=== PATIENT | female | born 1985 | race American Indian/Alaskan Native ===

== ENCOUNTER 2020-04-30 11:10 | Emergency (ER) | payer SELFPAY ==
--- NOTE | 2020-04-30 12:58 | Event Note ---
ED Screening Note Date of service: 04/30/20 Time: 12:57 ED Screening Note: Patient presents for vaginal bleeding and lower abdominal pain during States pain 9/10 in severity Patient has not seen an MECHANICAL REPAIR WORKER and is unsure of how many weeks she is currently Patient was seen here last week for nausea and vomiting and states that is when she was diagnosed with , no ultrasound was performed This initial assessment/diagnostic orders/clinical plan/treatment(s) is/are subject to change based on patients health status, clinical progression and re- assessment by fellow clinical providers in the ED. Further treatment and workup at subsequent clinical providers discretion. Patient/guardian urged not to elope from the ED as their condition may be serious if not clinically assessed and managed. Initial orders include: Ultrasound Labs
[2020-04-30 13:09] VITALS: BP 118/56
[2020-04-30 13:47] LABS: Basophils # (Auto) 0.2 K/mm3 (0.0-0.1); Basophils % (Auto) 1.2 % (0.0-1.8); Eosinophils # (Auto) 0.2 K/mm3 (0.0-0.4); Eosinophils % (Auto) 1.2 % (0.0-4.3); Hematocrit 42.3 % (30.3-42.9); Hemoglobin 13.8 gm/dl (10.1-14.3); Lymphocytes # (Auto) 4.4 K/mm3 (1.2-5.4); Lymphocytes % (Auto) 25.9 % (13.4-35.0); Mean Corpuscular HGB Conc 33 % (30-34); Mean Corpuscular Volume 94 fl (79-97); Monocytes # (Auto) 1.3 K/mm3 (0.0-0.8); Monocytes % (Auto) 7.8 % (0.0-7.3); Platelet Count 220 K/mm3 (140-440); Red Cell Distribution Width 14.1 % (13.2-15.2)
[2020-04-30 14:15] LABS: Alanine Aminotransferase 10 units/L (7-56); Blood Urea Nitrogen 14 mg/dL (7-17); Calcium 9.4 mg/dL (8.4-10.2); Hemolysis Index 85
[2020-04-30 14:17] LABS: BUN/Creatinine Ratio 20
[2020-04-30 14:17] LABS: Bacteria,Urine 1+ /HPF (Negative); Bilirubin,Urine NEG (Negative); Blood,Urine NEG (Negative); Color,Urine Yellow (Yellow); Mucus,Urine FEW /HPF; Protein,Urine <15 mg/dL mg/dL (Negative); Urobilinogen,Urine < 2.0 mg/dL (<2.0); WBC,Urine < 1.0 /HPF (0.0-6.0)
--- NOTE | 2020-04-30 14:19 | Ultrasound Report ---
ULTRASOUND OBSTETRIC INDICATION: 9 weeks, 5 days with pelvic pain and vaginal bleeding. TECHNIQUE: Transabdominal and Transvaginal. COMPARISON: None available. FINDINGS: GESTATIONAL SAC: Well-defined oval shape and intrauterine in location. YOLK SAC: No significant abnormality. EMBRYO/FETUS: No significant abnormality. - [place]-Rump Length = 0.8 cm = 6 weeks, 6 day(s). - Heart Rate = 143 beats per minute. ADNEXA: No significant abnormality. FREE FLUID: None. ADDITIONAL FINDINGS: A small area of possible subchorionic hemorrhage measures 1.2 x 0.1 cm. IMPRESSION: 1. Single, living intrauterine with estimated sonographic age of 6 weeks, 6 day(s). 2. Possible small subchorionic hemorrhage as above. Signer Name: Dong Back MD Signed: 04/30/2020 2:15 PM Workstation Name: [id number]
--- NOTE | 2020-04-30 14:19 | Ultrasound Report ---
ULTRASOUND OBSTETRIC INDICATION: 9 weeks, 5 days with pelvic pain and vaginal bleeding. TECHNIQUE: Transabdominal and Transvaginal. COMPARISON: None available. FINDINGS: GESTATIONAL SAC: Well-defined oval shape and intrauterine in location. YOLK SAC: No significant abnormality. EMBRYO/FETUS: No significant abnormality. - [place]-Rump Length = 0.8 cm = 6 weeks, 6 day(s). - Heart Rate = 143 beats per minute. ADNEXA: No significant abnormality. FREE FLUID: None. ADDITIONAL FINDINGS: A small area of possible subchorionic hemorrhage measures 1.2 x 0.1 cm. IMPRESSION: 1. Single, living intrauterine with estimated sonographic age of 6 weeks, 6 day(s). 2. Possible small subchorionic hemorrhage as above. Signer Name: Dong Back MD Signed: 04/30/2020 2:15 PM Workstation Name: [id number]
--- NOTE | 2020-04-30 16:28 | Emergency Department Report ---
ED Female HPI - General Chief complaint: Abdominal Pain Stated complaint: PREG BLEEDING Time Seen by Provider: 04/30/20 12:57 Source: patient Mode of arrival: Ambulatory Limitations: No Limitations - History of Present Illness Initial comments: This is a G1, P0 34-year-old female who presents the ED complaining of intermittent vaginal spotting that began 3 days ago. Patient states she was worried because spotting is not resolved. Patient states last menstrual. As February 22, 2020. Patient states that she has not had care as of yet due to her waiting on her Medicaid to come through. Patient denies pelvic pain, nausea, vomiting, shortness of breath or chest pain Complaint: vaginal bleeding Are you Now?: Yes Last Menstrual Period: 02/22/20 EDC: 11/28/20 - Related Data Allergies Allergy/AdvReac Type Severity Reaction Status Date / Time No Known Allergies Allergy Unverified 04/22/20 12:51 ED Review of Systems ROS: Stated complaint: PREG BLEEDING Other details as noted in HPI ED Past Medical Hx - Past Medical History Previous Medical History?: No - Surgical History Additional Surgical History: Breast reduction - Social History Smoking Status: Never Smoker Substance Use Type: None ED Physical Exam - General Limitations: No Limitations ED Course Vital Signs 04/30/20 04/30/20 11:49 13:02 Temperature 98.1 F Pulse Rate 58 L Respiratory 18 Rate Blood Pressure 101/50 Blood Pressure 118/56 [Left] O2 Sat by Pulse 98 Oximetry ED Medical Decision Making - Lab Data Result diagrams: 04/30/20 13:10 04/30/20 13:10 Laboratory Last Values WBC 17.1 K/mm3 (4.5-11.0) H 04/30/20 13:10 RBC 4.50 M/mm3 (3.65-5.03) 04/30/20 13:10 Hgb 13.8 gm/dl (10.1-14.3) 04/30/20 13:10 Hct 42.3 % (30.3-42.9) 04/30/20 13:10 MCV 94 fl (79-97) 04/30/20 13:10 MCH 31 pg (28-32) 04/30/20 13:10 MCHC 33 % (30-34) 04/30/20 13:10 RDW 14.1 % (13.2-15.2) 04/30/20 13:10 Plt Count 220 K/mm3 (140-440) 04/30/20 13:10 Lymph % (Auto) 25.9 % (13.4-35.0) 04/30/20 13:10 Martin % (Auto) 7.8 % (0.0-7.3) H 04/30/20 13:10 Eos % (Auto) 1.2 % (0.0-4.3) 04/30/20 13:10 Baso % (Auto) 1.2 % (0.0-1.8) 04/30/20 13:10 Lymph # 4.4 K/mm3 (1.2-5.4) 04/30/20 13:10 Martin # 1.3 K/mm3 (0.0-0.8) H 04/30/20 13:10 Eos # 0.2 K/mm3 (0.0-0.4) 04/30/20 13:10 Baso # 0.2 K/mm3 (0.0-0.1) H 04/30/20 13:10 Seg Neutrophils % 63.9 % (40.0-70.0) 04/30/20 13:10 Seg Neutrophils # 11.0 K/mm3 (1.8-7.7) H 04/30/20 13:10 Sodium 136 mmol/L (137-145) L 04/30/20 13:10 Potassium 4.4 mmol/L (3.6-5.0) 04/30/20 13:10 Chloride 101.4 mmol/L (98-107) 04/30/20 13:10 Carbon Dioxide 21 mmol/L (22-30) L 04/30/20 13:10 Anion Gap 18 mmol/L 04/30/20 13:10 BUN 14 mg/dL (7-17) 04/30/20 13:10 Creatinine 0.7 mg/dL (0.6-1.2) 04/30/20 13:10 Estimated GFR > 60 ml/min 04/30/20 13:10 BUN/Creatinine Ratio 20 % 04/30/20 13:10 Glucose 77 mg/dL (65-100) 04/30/20 13:10 Calcium 9.4 mg/dL (8.4-10.2) 04/30/20 13:10 Total Bilirubin 0.30 mg/dL (0.1-1.2) 04/30/20 13:10 AST 15 units/L (5-40) 04/30/20 13:10 ALT 10 units/L (7-56) 04/30/20 13:10 Alkaline Phosphatase 52 units/L (35-129) 04/30/20 13:10 Total Protein 7.7 g/dL (6.3-8.2) 04/30/20 13:10 Albumin 4.0 g/dL (3.9-5) 04/30/20 13:10 Albumin/Globulin Ratio 1.1 % 04/30/20 13:10 HCG, Quant 93477 mIU/mL (0-4) H 04/30/20 13:10 Urine Color Yellow (Yellow) 04/30/20 13:30 Urine Turbidity Clear (Clear) 04/30/20 13:30 Urine pH 6.0 (5.0-7.0) 04/30/20 13:30 Ur Specific [place] 1.024 (1.003-1.030) 04/30/20 13:30 Urine Protein <15 mg/dl mg/dL (Negative) 04/30/20 13:30 Urine Glucose (UA) Neg mg/dL (Negative) 04/30/20 13:30 Urine Ketones Neg mg/dL (Negative) 04/30/20 13:30 Urine Blood Neg (Negative) 04/30/20 13:30 Urine Nitrite Neg (Negative) 04/30/20 13:30 Urine Bilirubin Neg (Negative) 04/30/20 13:30 Urine Urobilinogen < 2.0 mg/dL (<2.0) 04/30/20 13:30 Ur Leukocyte Esterase Neg (Negative) 04/30/20 13:30 Urine WBC (Auto) < 1.0 /HPF (0.0-6.0) 04/30/20 13:30 Urine RBC (Auto) 2.0 /HPF (0.0-6.0) 04/30/20 13:30 U Epithel Cells (Auto) 2.0 /HPF (0-13.0) 04/30/20 13:30 Urine Bacteria (Auto) 1+ /HPF (Negative) 04/30/20 13:30 Urine Mucus Few /HPF 04/30/20 13:30 Blood Type O POSITIVE 04/30/20 13:10 - Radiology Data Radiology results: report reviewed ULTRASOUND OBSTETRIC INDICATION: 9 weeks, 5 days with pelvic pain and vaginal bleeding. TECHNIQUE: Transabdominal and Transvaginal. COMPARISON: None available. FINDINGS: GESTATIONAL SAC: Well-defined oval shape and intrauterine in location. YOLK SAC: No significant abnormality. EMBRYO/FETUS: No significant abnormality. - [place]-Rump Length = 0.8 cm = 6 weeks, 6 day(s). - Heart Rate = 143 beats per minute. ADNEXA: No significant abnormality. FREE FLUID: None. ADDITIONAL FINDINGS: A small area of possible subchorionic hemorrhage measures 1.2 x 0.1 cm. IMPRESSION: 1. Single, living intrauterine with estimated sonographic age of 6 weeks, 6 day(s). 2. Possible small subchorionic hemorrhage as above. Signer Name: Dong Back MD Signed: 04/30/2020 2:15 PM Workstation Name: [id number] Transcribed By: MN Dictated By: Dong Back MD Electronically Authenticated By: Dong Back MD Signed Date/Time: 04/30/20 1415 - Medical Decision Making 34-year-old female presents to ED with vaginal spotting in ED course: Pt received ultra sound, CBC, urinalysis, test and quantitative ED All labs within normal limits, quantitative elevated matching gestation age Patient states that bleeding is just intermittent spotting Patient is not seen by an BRAIDING OPERATOR yet as she states that she should be getting her Medicaid soon Ultrasound shows single intrauterine . See reported above Vital signs normalized patient is in no acute distress. I discussed with the patient if follow-up with her BRAIDING OPERATOR. I discussed all labs and ultrasound findings with the patient. I discussed with the patient that he if bleeding worsens or new symptoms develop to return to ED immediately Critical care attestation.: If time is entered above; I have spent that time in minutes in the direct care of this critically ill patient, excluding procedure time. ED Disposition Clinical Impression: Vaginal bleeding during Disposition: DC-01 TO HOME OR SELFCARE Is pt being admited?: No Does the pt Need Aspirin: No Condition: Stable Instructions: Abdominal Pain (ED), (ED), Threatened Miscarriage (ED) Additional Instructions: Make sure to follow up with the primary care physician as discussed. If you have any worsening symptoms or develop new symptoms please return to ED immediately. Referrals: PRIMARY CARE, [Primary Care Provider] - 3-5 Days [facility] [Outside] - 3-5 Days [facility] [Provider Group] - 3-5 Days [facility] [Provider Group] - 3-5 Days Forms: Work/School Release Form(ED) Time of Disposition: 16:32
== END 2020-04-30 16:39 | disposition home or self-care (01) ==
LOC: ED 11:10
DX: O20.9 Hemorrhage in early pregnancy, unspecified (principal); Z3A.09 9 weeks gestation of pregnancy; Z98.890 Other specified postprocedural states
CPT/HCPCS: 36415; 76801; 76817; 80053; 81001; 84702; 85025; 86900; 86901